=== PATIENT | male | born 1985 | race African-American/Black ===

== ENCOUNTER 2019-04-01 23:47 | Emergency (ER) | payer OTHER ==
[~2019-04-01] VITALS: Ht 180.3 cm; Wt 95.0 kg
[2019-04-01] MEDS ORDERED: SERT25TA85 PO (23:52)
[2019-04-01] MEDS ORDERED: METH1TAB40 PO (23:52)
[2019-04-02] MEDS ORDERED: KETOROLAC 60 MG/2 ML VIAL (J1885) IM ONE (00:15)
[2019-04-02] MEDS ORDERED: LIDOCAINE 5% (LIDODERM) PATCH TD ONE (00:15)
[2019-04-02 01:02] VITALS: BP 108/67
[2019-04-02] MEDS ORDERED: LIDO1CRE2 TOP (01:03)
[2019-04-02] MEDS ORDERED: METH1TAB40 PO (01:03)
[2019-04-02] MEDS ORDERED: NAPR-837 PO (01:03)
[2019-04-02] MEDS ORDERED: diazePAM 10 MG TAB PO ONE (01:15)
--- NOTE | 2019-04-02 01:44 | REP ---
Clinical: Left-sided chest pain radiating to shoulder. Comparison: None . Technique: PA and lateral. Findings: The mediastinum and cardiac silhouette are normal. The lung armenta are clear and without acute consolidation, effusion, or pneumothorax. The skeletal structures are intact and normal. Impression: 1. No acute cardiopulmonary process. Electronically Signed by Nato Finch MD 04/02/2019 01:35 A
[2019-04-02] MEDS ORDERED: **NOTE PATIENT COMMENT** MISC XX SCH (21:00)
== END 2019-04-02 01:12 | disposition home or self-care (01) ==
LOC: M ED 23:47
DX: M62.838 Other muscle spasm (principal); Z79.899 Other long term (current) drug therapy
CPT/HCPCS: 71046; 99283; J1885

== ENCOUNTER 2019-09-12 19:09 | Emergency (ER) | payer OTHER ==
[~2019-09-12] VITALS: Ht 180.3 cm; Wt 92.3 kg
[~2019-09-12 19:09] MED LIST: LIDO1CRE2 TOP; METH1TAB40 PO; NAPR-837 PO; SERT25TA85 PO
[2019-09-12] MEDS ORDERED: D 50CAP2 (19:18)
[2019-09-12] MEDS ORDERED: LIDOCAINE 2% MDV 20ML VIAL SC ONE (20:00)
[2019-09-12 20:29] VITALS: BP 131/85
== END 2019-09-12 20:42 | disposition home or self-care (01) ==
LOC: M ED 19:09
DX: S91.115A Laceration without foreign body of left lesser toe(s) without damage to nail, initial encounter (principal); W26.8XXA Contact with other sharp object(s), not elsewhere classified, initial encounter; Y92.098 Other place in other non-institutional residence as the place of occurrence of the external cause; Z79.899 Other long term (current) drug therapy